=== PATIENT | male | born 1955 | race Two or more races ===

== ENCOUNTER 2018-07-08 01:31 | Observation (INO) | payer SELFPAY ==
[2018-07-08] MEDS ORDERED: NORMAL SALINE 1000 ML 1,000 ML IV ONE (01:52)
--- NOTE | 2018-07-08 01:53 | ER Document Report ---
ED General - General Stated Complaint: WEAKNESS Time Seen by Provider: 07/08/18 01:38 TRAVEL OUTSIDE OF THE [place] IN LAST 30 DAYS: No - HPI Notes: Patient is a 63-year-old male that presents to the emergency department for chief complaint of syncope. Patient appears intoxicated and does endorse alcohol consumption tonight. He do es not remember most of the events of the evening and is a poor historian. He did arrive by EMS with a complaint of syncopal event. Patient states he remembers feeling chest pain and nausea. He states he went to lay down and that does not remember any of the events. Patient was reportedly unconscious when EMS arrived but did awake to ammonia stimuli. Patient's did bystander CPR while he was unresponsive but had not checked a pulse. Patient currently is complaining of a pain in his chest that radiates up to the left side of his neck and generalized fatigue. He states he has been having this type of chest pain on and off for the last 6 weeks. Last time he felt it was about a week ago and then again today prior to syncope. He states he has not seen a doctor in many years and does not take any medications daily. Past Medical History: Negative Past Surgical History: Negative Social History: Occasional tobacco, social alcohol, denies drug use Family History: Reviewed and noncontributory for presenting illness Allergies: Reviewed, see documented allergy list. REVIEW OF SYSTEMS: CONSTITUTIONAL : No fever No chills No diaphoresis No recent illness Fatigue EENT: No vision changes No congestion No sore throat CARDIOVASCULAR: chest pain Syncope No palpitations RESPIRATORY: No shortness of breath No cough No difficulty breathing GASTROINTESTINAL: No abdominal pain No nausea No vomiting No diarrhea GENITOURINARY: No dysuria No hematuria No difficulty urinating MUSCULOSKELETAL: No back pain No leg pain No arm pain SKIN: No rashes No lesions LYMPHATIC: No swollen, enlarged glands. NEUROLOGICAL: No lightheadedness No headache No weakness No paresthesias PSYCHIATRIC: No anxiety No depression PHYSICAL EXAMINATION: Vital signs reviewed, nursing noted reviewed. GENERAL: Appears intoxicated, mildly somnolent, well-nourished HEAD: Atraumatic, normocephalic. EYES: Eyes appear normal, extraocular movements intact, sclera anicteric, conjunctiva are normal. ENT: nares patent, oropharynx clear without exudates. Moist mucous membranes. NECK: No carotid bruit bilaterally, normal range of motion, supple without lymphadenopathy LUNGS: Mild tenderness to sternum with overlying erythema, no crepitus or chest wall deformity, breath sounds clear to auscultation bilaterally and equal. No wheezes rales or rhonchi. HEART: Regular rate and rhythm without murmurs. +2/4 left radial and bilateral DP pulses. +1/4 right radial pulse. Normal capillary refill bilaterally ABDOMEN: No pulsatile midline mass or abdominal bruit, protuberant, soft, nontender, normoactive bowel sounds. No rebound, guarding, or rigidity. No masses appreciated. EXTREMITIES: Nontender, good range of motion, no pitting or edema. NEUROLOGICAL: No focal neurological deficits. Moves all extremities spontaneously Motor and sensory grossly intact on exam. PSYCH: Normal mood, normal affect. SKIN: Warm, diaphoretic, normal turgor, no rashes or lesions noted on exposed skin - Related Data Allergies/Adverse Reactions: No Known Allergies Allergy (Verified 07/08/18 01:49) Past Medical History - Social History Smoking Status: Current Some Day Smoker Family History: Reviewed & Not Pertinent - Immunizations Hx Diphtheria, Pertussis, Tetanus Vaccination: Yes Physical Exam - Vital signs Vitals: Temp 97.6 F 07/08/18 01:35 Course - Re-evaluation Re-evalutation: 07/08/18 01:52 Vitals reviewed. Nursing notes reviewed. EKG shows no STEMI. Patient placed on telemetry monitoring. Aspirin currently being held until CTA can be obtained to rule out aortic dissection given asymmetric radial pulses and complaint of syncope and chest pain. 07/08/18 01:58 Patient's family is now at bedside. They state he is a heavy drinker and has been drinking daily for a long time. They state that he was laying down during the syncopal episode and did not fall or injure himself. Patient at one point had blue lips and did not appear to be breathing which is why CPR was initiated. Laboratory 07/08/18 07/08/18 07/08/18 01:45 01:45 01:45 WBC 9.4 RBC 4.84 Hgb 14.8 Hct 42.9 MCV 89 MCH 30.5 MCHC 34.4 RDW 13.1 Plt Count 239 Seg Neutrophils % 55.4 Lymphocytes % 27.5 Monocytes % 6.1 Eosinophils % 9.7 H Basophils % 1.3 Absolute Neutrophils 5.2 Absolute Lymphocytes 2.6 Absolute Monocytes 0.6 Absolute Eosinophils 0.9 H Absolute Basophils 0.1 Sodium 141.6 Potassium 3.7 Chloride 109 H Carbon Dioxide 19 L Anion Gap 14 BUN 13 Creatinine 0.79 Est GFR ( Amer) > 60 Est GFR (Non-Af Amer) > 60 Glucose 113 H Calcium 9.1 Total Bilirubin 0.4 Direct Bilirubin 0.3 Neonat Total Bilirubin Not Reportable Neonat Direct Bilirubin Not Reportable Neonat Indirect Bili Not Reportable AST 28 ALT 26 Alkaline Phosphatase 69 Troponin I < 0.012 Total Protein 7.9 Albumin 4.3 Urine Color Urine Appearance Urine pH Ur Specific [place] Urine Protein Urine Glucose (UA) Urine Ketones Urine Blood Urine Nitrite Urine Bilirubin Urine Urobilinogen Ur Leukocyte Esterase Urine WBC (Auto) Urine Mucus (Auto) Urine Ascorbic Acid Urine Opiates Screen Urine Methadone Screen Ur Barbiturates Screen Ur Phencyclidine Scrn Ur Amphetamines Screen U Benzodiazepines Scrn Urine Cocaine Screen U Marijuana (THC) Screen Serum Alcohol 133 07/08/18 07/08/18 02:44 02:44 WBC RBC Hgb Hct MCV MCH MCHC RDW Plt Count Seg Neutrophils % Lymphocytes % Monocytes % Eosinophils % Basophils % Absolute Neutrophils Absolute Lymphocytes Absolute Monocytes Absolute Eosinophils Absolute Basophils Sodium Potassium Chloride Carbon Dioxide Anion Gap BUN Creatinine Est GFR ( Amer) Est GFR (Non-Af Amer) Glucose Calcium Total Bilirubin Direct Bilirubin Neonat Total Bilirubin Neonat Direct Bilirubin Neonat Indirect Bili AST ALT Alkaline Phosphatase Troponin I Total Protein Albumin Urine Color COLORLESS Urine Appearance CLEAR Urine pH 6.0 Ur Specific [place] 1.010 Urine Protein NEGATIVE Urine Glucose (UA) NEGATIVE Urine Ketones NEGATIVE Urine Blood NEGATIVE Urine Nitrite NEGATIVE Urine Bilirubin NEGATIVE Urine Urobilinogen NEGATIVE Ur Leukocyte Esterase NEGATIVE Urine WBC (Auto) 1 Urine Mucus (Auto) RARE Urine Ascorbic Acid NEGATIVE Urine Opiates Screen NEGATIVE Urine Methadone Screen NEGATIVE Ur Barbiturates Screen NEGATIVE Ur Phencyclidine Scrn NEGATIVE Ur Amphetamines Screen NEGATIVE U Benzodiazepines Scrn NEGATIVE Urine Cocaine Screen NEGATIVE U Marijuana (THC) Screen NEGATIVE Serum Alcohol Chest X-Ray 07/08/18 00:00 IMPRESSION: Clear lungs. Abdomen/Pelvis CTA 07/08/18 01:47 IMPRESSION: No aortic dissection or aneurysm. No pulmonary embolus. No acute inflammatory process. Chest/Abdomen CTA 07/08/18 01:47 IMPRESSION: No aortic dissection or aneurysm. No pulmonary embolus. No acute inflammatory process. 07/08/18 03:22 Patient's workup is unremarkable with the exception of acute alcohol intoxication. He has a normal troponin and no ischemia on EKG. CT scan shows no aortic dissection, aneurysm, or pulmonary embolism. Patient has normal BUN and creatinine. He has not had any events on telemetry. Patient will be admitted to the hospital for continued telemetry monitoring given his full synco pal event bystander CPR. Patient's care was discussed with Dr. Coulter who accepts admission. - Vital Signs Vital signs: Temp Pulse Resp BP Pulse Ox 97.6 F 10 L 143/91 H 99 07/08/18 01:35 07/08/18 02:00 07/08/18 01:40 07/08/18 02:00 - Laboratory Result Diagrams: 07/08/18 01:45 07/08/18 01:45 Laboratory results interpreted by me: 07/08/18 07/08/18 01:45 01:45 Eosinophils % 9.7 H Absolute Eosinophils 0.9 H Chloride 109 H Carbon Dioxide 19 L Glucose 113 H - EKG Interpretation by Me Additional EKG results interpreted by me: 07/08/18 01:53 Interpreted by myself [id number]: Normal sinus rhythm, rate 70, left axis, no ectopy, no ST elevation Discharge - Discharge Clinical Impression: Syncope Qualifiers: Syncope type: unspecified Qualified Code(s): R55 - Syncope and collapse Alcohol intoxication Qualifiers: Complication of substance-induced condition: with unspecified complication Qualified Code(s): F10.929 - Alcohol use, unspecified with intoxication, unspecified Condition: Stable Disposition: ADMITTED OBSERVATION Admitting Provider: [facility] (Hospitalist) Unit Admitted: Telemetry
[2018-07-08 02:00] LABS: ABSOLUTE BASOPHILS # (AUTO) 0.1 10^3/uL (0.0-0.2); ABSOLUTE EOSINOPHILS # (AUTO) 0.9 10^3/uL (0.0-0.6); ABSOLUTE LYMPHOCYTES (AUTO) 2.6 10^3/uL (0.5-4.7); ABSOLUTE MONOCYTES (AUTO) 0.6 10^3/uL (0.1-1.4); ABSOLUTE NEUT (AUTO) 5.2 10^3/uL (1.7-8.2); BASOPHILS % (AUTO) 1.3 % (0-2); EOSINOPHILS % (AUTO) 9.7 % (0-6); HEMATOCRIT 42.9 % (37.9-51.0); HEMOGLOBIN 14.8 g/dL (13.5-17.0); LYMPHOCYTES % (AUTO) 27.5 % (13-45); MEAN CORPUSCULAR HEMOGLOBIN 30.5 pg (27.0-33.4); MEAN CORPUSCULAR HGB CONC 34.4 g/dL (32.0-36.0); MEAN CORPUSCULAR VOLUME 89 fl (80-97); MONOCYTES % (AUTO) 6.1 % (3-13); PLATELET COUNT 239 10^3/uL (150-450); RED BLOOD COUNT 4.84 10^6/uL (4.35-5.55); RED CELL DISTRIBUTION WIDTH 13.1 % (11.5-14.0); SEGMENTED NEUTROPHILS % (AUTO) 55.4 % (42-78); TOTAL CELLS COUNTED % (AUTO) 100 %; WHITE BLOOD COUNT 9.4 10^3/uL (4.0-10.5)
[2018-07-08 02:23] LABS: ALANINE AMINOTRANSFERASE 26 U/L (21-72); ALBUMIN 4.3 g/dL (3.5-5.0); ALCOHOL 133 mg/dL (NONE DETECTED); ALKALINE PHOSPHATASE 69 U/L (38-126); ANION GAP 14 (5-19); ASPARTATE AMINO TRANSFERASE 28 U/L (17-59); BILIRUBIN,DIRECT 0.3 mg/dL (0.0-0.4); BILIRUBIN,TOTAL 0.4 mg/dL (0.2-1.3); BLOOD UREA NITROGEN 13 mg/dL (7-20); CALCIUM 9.1 mg/dL (8.4-10.2); CARBON DIOXIDE 19 mmol/L (22-30); CHLORIDE 109 mmol/L (98-107); GLUCOSE 113 mg/dL (75-110); POTASSIUM 3.7 mmol/L (3.6-5.0); SODIUM 141.6 mmol/L (137-145); TOTAL PROTEIN 7.9 g/dL (6.3-8.2)
[2018-07-08 02:55] LABS: APPEARANCE,URINE CLEAR; BILIRUBIN,URINE NEGATIVE (NEGATIVE); COLOR,URINE COLORLESS; GLUCOSE, URINE NEGATIVE (NEGATIVE); KETONES,URINE NEGATIVE (NEGATIVE); LEUKOCYTE ESTERASE,URINE NEGATIVE (NEGATIVE); NITRITE,URINE NEGATIVE (NEGATIVE); PROTEIN,URINE NEGATIVE (NEGATIVE); UROBILINOGEN,URINE NEGATIVE mg/dL (<2.0)
--- NOTE | 2018-07-08 02:58 | RADIOLOGY REPORT (SQ) ---
CLINICAL HISTORY: dissection COMPARISON: None. TECHNIQUE: CT ABDOMEN PELVIS WITHOUT THEN WITH IV CONTRAST, CT CHEST ANGIOGRAPHY WITHOUT THEN WITH IV CONTRAST on 07/08/2018 1:47 AM CDT. MIPS reconstructions were generated. This exam was performed according to our departmental dose-optimization program, which includes automated exposure control, adjustment of the mA and/or kV according to patient size and/or use of iterative reconstruction technique. FINDINGS: Vascular: Thoracic aorta is normal in course and caliber without aneurysm or dissection. Pulmonary arteries are adequately opacified without acute or chronic filling defects. Abdominal aorta is normal in course and caliber without aneurysm. Pelvic arteries are patent without aneurysm or occlusion. The heart is normal in size. There is no pericardial effusion. Intrathoracic lymph nodes are not enlarged. There is no hydronephrosis. Central airways are patent. Lungs are clear with no consolidation, mass or interstitial lung disease. Abdomen: The liver is normal in appearance. There is no biliary dilatation. Gallbladder is normal in appearance. The pancreas and spleen are normal in appearance. Adrenal glands are normal. There is a small simple cyst in the mid to lower pole of the right kidney measuring 3.1 cm. Left kidney is unremarkable. Abdominal aorta is normal in course and caliber without aneurysm. There is no free air. There is no retroperitoneal adenopathy. Pelvis: There is mild diffuse colonic diverticulosis. Urinary bladder is unremarkable. There is no free fluid. Appendix is normal. Skeleton: There are no acute osseous findings. No suspicious bony lesions. IMPRESSION: No aortic dissection or aneurysm. No pulmonary embolus. No acute inflammatory process.
--- NOTE | 2018-07-08 03:02 | RADIOLOGY REPORT (SQ) ---
CLINICAL HISTORY: SYNCOPE COMPARISON: None. TECHNIQUE: XR CHEST 1 VIEW 07/08/2018 12:00 AM CDT FINDINGS: Cardiac silhouette is normal in size. Lungs are clear without consolidation, atelectasis, mass or edema. There is no pleural effusion. There is no pneumothorax. There are no acute osseous findings. IMPRESSION: Clear lungs.
[2018-07-08 03:12] LABS: URINE AMPHETAMINES SCREEN NEGATIVE; URINE BARBITURATES SCREEN NEGATIVE; URINE BENZODIAZEPINES SCREEN NEGATIVE; URINE COCAINE SCREEN NEGATIVE; URINE MARIJUANA (THC) SCREEN NEGATIVE; URINE METHADONE SCREEN NEGATIVE; URINE PHENCYCLIDINE SCREEN NEGATIVE
[2018-07-08] MEDS ORDERED: ACETAMINOPHEN 325 MG TABLET PO PRN (04:09)
[2018-07-08] MEDS ORDERED: ONDANSETRON 4 MG TAB.RAPDIS PO PRN (04:09)
[2018-07-08] MEDS ORDERED: ONDANSETRON HCL INJ/PF 4 MG/2 ML SDV IV PRN (04:09)
[2018-07-08] MEDS ORDERED: MAG HYDROX/AL HYDROX/SIMETH SUSP 30 ML UDCUP PO PRN (04:09)
[2018-07-08] MEDS ORDERED: MAGNESIUM HYDROXIDE SUSP 30 ML UDCUP PO PRN (04:09)
[2018-07-08] MEDS: NORMAL SALINE 1000 ML 1,000 ML IV PRN (04:20)
--- NOTE | 2018-07-08 05:31 | PDOC H&P ---
History of Present Illness Admission Date/PCP: 07/08/18 03:33 No primary care physician Patient complains of: Was unresponsive status post brief respiratory arrest History of Present Illness: WILTON HUNG is a 63 year old male with history of alcohol and tobacco abuse who presented to the emergency room with acute onset of altered mental status with unresponsiveness and shallow breathing apparently followed by respiratory arrest and cyanosis for which EMS was called. Brief CPR was started and then the patient was given ammonia test that woke him up. Prior to that he has been drinking alcohol. He stated for beer and 2 liquid shots tonight. He has been having intermittent left parasternal chest pain that feels as pressure in sharp pain with diaphoresis and dyspnea as well as palpitations moderate in intensity and with radiation to his left neck as well as his left upper extremity. He denied any nausea or vomiting with it. He has been having cough productive of whitish sputum without wheezing. No dysuria, oliguria or hematuria or flank pain. No other bleeding diathesis. When he came to the emergency room his blood pressure was 143/91 with a pulse of 72 respiratory rate of 16 temperature 97.6 and pulse oximetry is 98% on room air. Labs were unremarkable except for CO2 of 19 and serum alcohol of 133 with negative urine drug screen. The patient had an abdominal and chest CTA which showed no evidence for PE or aortic dissection. The patient was given 1 L bolus of IV normal saline. He will be admitted to a telemetry bed for further evaluation and management. Past Medical History Past Medical History: #1 alcohol abuse 2. Tobacco abuse Past Surgical History Past Surgical History: Reports: None Social History Smoking Status: Current Some Day Smoker - Smokes 3-4 cigarettes/day Frequency of Alcohol Use: Heavy - Patient stated that he drinks 2 beer per day but today for beer and liquor shots Hx Recreational Drug Use: No Family History Family History: DM, Hypertension Parental Family History Reviewed: Yes Children Family History Reviewed: Yes Sibling(s) Family History Reviewed.: Yes Medication/Allergy Home Medications: Ciprofloxacin HCl [Cipro 500 mg Tablet] 500 mg PO BID #20 tablet 02/24/14 Metronidazole [Flagyl 500 mg Tablet] 500 mg PO TID #30 tablet 02/24/14 Oxycodone HCl/Acetaminophen [Percocet 5-325 mg Tablet] 1 - 2 tab PO ASDIR PRN #15 tablet 02/24/14 Allergies/Adverse Reactions: No Known Allergies Allergy (Verified 07/08/18 01:49) Review of Systems Review of Systems: As per history of present illness. All pertinent systems were reviewed above. Constitutional, HEENT, cardiovascular, respiratory, GI, , musculoskeletal, neuro, psychiatric, endocrine, integumentary and hematologic systems were reviewed and are otherwise negative/unremarkable except for positive findings mentioned above in the HPI. Physical Exam Vital Signs: Temp Pulse Resp BP Pulse Ox 97.6 F 11 L 136/95 H 97 07/08/18 01:35 07/08/18 04:00 07/08/18 04:00 07/08/18 04:00 Intake & Output 07/06/18 07/07/18 07/08/18 06:59 06:59 06:59 Intake Total 1000 Balance 1000 Weight 81.647 kg Exam: Generally: Pleasant middle-aged male in no acute distress Vital signs-as listed Head - atraumatic, normocephalic. Pupils - equal, round and reactive to light and accommodation. Extraocular movements are intact. No scleral icterus. Oropharynx - moist mucous membranes and tongue. No pharyngeal erythema or exudate. Neck - supple. No JVD. Carotid pulses 2+ bilaterally. No carotid bruits. No palpable thyromegaly or lymphadenopathy. Cardiovascular - regular rate and rhythm. Normal S1 and S2. No murmurs, gallops or rubs. Lungs - clear to auscultation bilaterally. Abdomen - soft and nontender. Positive bowel sounds. No palpable organomegaly or masses. Extremities - no pitting edema, clubbing or cyanosis. Neuro - grossly non-focal. He is alert oriented x3 and cooperative. Skin - no rashes. and rectal exam - deferred. Results Laboratory Results: 07/08/18 01:45 07/08/18 01:45 07/08/18 07/08/18 07/08/18 01:45 01:45 02:44 WBC 9.4 RBC 4.84 Hgb 14.8 Hct 42.9 MCV 89 MCH 30.5 MCHC 34.4 RDW 13.1 Plt Count 239 Seg Neutrophils % 55.4 Lymphocytes % 27.5 Monocytes % 6.1 Eosinophils % 9.7 H Basophils % 1.3 Absolute Neutrophils 5.2 Absolute Lymphocytes 2.6 Absolute Monocytes 0.6 Absolute Eosinophils 0.9 H Absolute Basophils 0.1 Sodium 141.6 Potassium 3.7 Chloride 109 H Carbon Dioxide 19 L Anion Gap 14 BUN 13 Creatinine 0.79 Est GFR ( Amer) > 60 Est GFR (Non-Af Amer) > 60 Glucose 113 H Calcium 9.1 Total Bilirubin 0.4 AST 28 ALT 26 Alkaline Phosphatase 69 Total Protein 7.9 Albumin 4.3 Urine Color COLORLESS Urine Appearance CLEAR Urine pH 6.0 Ur Specific [place] 1.010 Urine Protein NEGATIVE Urine Glucose (UA) NEGATIVE Urine Ketones NEGATIVE Urine Blood NEGATIVE Urine Nitrite NEGATIVE Ur Leukocyte Esterase NEGATIVE Urine WBC (Auto) 1 07/08/18 01:45 Troponin I < 0.012 Impressions: Chest X-Ray 07/08/18 00:00 IMPRESSION: Clear lungs. Abdomen/Pelvis CTA 07/08/18 01:47 IMPRESSION: No aortic dissection or aneurysm. No pulmonary embolus. No acute inflammatory process. Chest/Abdomen CTA 07/08/18 01:47 IMPRESSION: No aortic dissection or aneurysm. No pulmonary embolus. No acute inflammatory process. Assessment and Plan - Diagnosis (1) Respiratory arrest Is this a current diagnosis for this admission?: Yes Plan: The patient was rapid resuscitated after ammonia test in brief CPR. He will be admitted to a telemetry bed. We will continue monitoring him. Management as below. (2) Syncope Qualifiers: Syncope type: unspecified Qualified Code(s): R55 - Syncope and collapse Is this a current diagnosis for this admission?: Yes Plan: This likely related to alcohol intoxication. He has suspected history of sleep apnea and it could have been contributing to his unresponsiveness. We will monitor his orthostatics and monitor him for arrhythmia on telemetry. He had no reported hypoglycemia. Will follow serial Enzymes. We will obtain a 2D echo this a.m. (3) Chest pain Is this a current diagnosis for this admission?: Yes Plan: Chest pain, rule out acute coronary syndrome. The patient will be admitted to a telemetry bed. Will follow serial cardiac enzymes and EKGs. We will obtain a cardiology consult in a.m. for further cardiac risk stratification. The patient will be placed on aspirin as well as p.r.n. sublingual nitroglycerin and morphine sulfate for pain. (4) Alcohol intoxication Qualifiers: Complication of substance-induced condition: with unspecified complication Qualified Code(s): F10.929 - Alcohol use, unspecified with intoxication, unspecified Is this a current diagnosis for this admission?: Yes Plan: The patient will be on banana bag daily and as needed IV Ativan for withdrawal. (5) Tobacco abuse Is this a current diagnosis for this admission?: Yes Plan: I counseled the patient for smoking cessation and the patient will receive further counseling here. (6) DVT prophylaxis Is this a current diagnosis for this admission?: Yes Plan: Subcutaneous Lovenox and GI prophylaxis with PPI therapy for the possibility of GI etiology for his chest pain and given his alcohol abuse and the possibility of alcoholic gastritis - Time Within: within 72 hours - Inpatient Certification Medical Necessity: Need Close Monitoring Due to Risk of Patient Decompensation, Need For Continuous Telemetry Monitoring, Need for Neurological Checks, Risk of Complication if Not Cared For in Hospital - Plan Summary Plan Summary: The plan of care was discussed in details with the patient. I answered all questions. The patient agreed to proceed with the above-mentioned plan. The patient is presumably full code. This note was created by [employer] dictating software and may contain typo errors that may have not been proofread.
[2018-07-08] MEDS ORDERED: LORAZEPAM INJ 2 MG/1 ML VIAL IV PRN (06:12)
[2018-07-08] MEDS: PANTOPRAZOLE SODIUM 40 MG TABLET.DR PO SCH (06:23)
[2018-07-08 06:57] LABS: CHOLESTEROL 239.56 mg/dL (0-200); TRIGLYCERIDES 296 mg/dL (<150)
[2018-07-08 07:08] LABS: DIRECT LDL 144 mg/dL (<100)
[2018-07-08 07:13] LABS: VLDL CHOLESTEROL 59.2 mg/dL (10-31)
[2018-07-08 08:52] LABS: CREATINE KINASE MB 1.61 ng/mL (<4.55)
[2018-07-08 08:56] LABS: TROPONIN I < 0.012 ng/mL
[2018-07-08] MEDS: ENOXAPARIN SODIUM INJ 40 MG/0.4 ML DISP.SYRIN SUBCUT SCH (11:17)
[2018-07-08 15:29] LABS: CREATINE KINASE MB 1.44 ng/mL (<4.55)
[2018-07-08 15:33] LABS: TROPONIN I < 0.012 ng/mL
--- NOTE | 2018-07-08 17:51 | Progress Note ---
Provider Note Provider Note: This is 63 years old origin patient with history of alcohol and tobacco abuse presented to the ER with acute onset of altered mental status with unresponsiveness. Reportedly patient had brief CPR and then the patient was given ammonia tests that woke him up. He is lipid panel shows triglycerides of 296, total cholesterol of 236 and LDL of 144. Currently his vital signs are within normal limits. Accepted this patient.
[2018-07-08] MEDS ORDERED: NORMAL SALINE 1000 ML 1,000 ML with POTASSIUM CHLORIDE 20 MEQ, MAGNESIUM SULFATE 8 MEQ,... IV SCH ×5 (18:00)
--- NOTE | 2018-07-08 19:50 | XCELERA REPORT ---
[address] [address] Transthoracic Echocardiogram Report Name: WILTON HUNG Age: 63 yrs Gender: Male : 1955 Patient Status: Inpatient Patient Location: [place] [address]^[id number] Study Date: 07/08/2018 09:48 AM Height: 68 in Weight: 180 lb BSA: 2.0 m2 Procedure: A two-dimensional transthoracic echocardiogram with color flow Doppler was performed. Study Quality: Fair. Reason For Study: Syncope, chest pain status post respiratory arrest History: Syncope, chest pain status post respiratory arrest. Ordering Physician: NORA LORENZO Performed By: Ly Gerard Interpretation Summary The left ventricle is normal in size. There is normal left ventricular wall thickness. Left ventricular systolic function is normal. LV EF is > than 65% LV diastolic function could not be adequately assessed. The left ventricular wall motion is normal. There is no thrombus. There is no ASD ,VSD ,or PFO seen. The right ventricle is normal in size and function. The right atrium is normal. The left atrial size is normal. There is no evidence of mitral valve prolapse. There is no vegetation seen on the mitral valve. There is no mitral valve stenosis. There is a trace amount of mitral regurgitation There is no aortic valvular vegetation. There is no aortic valve stenosis There is no LVOT obstruction. No aortic regurgitation is present. There is no tricuspid stenosis. There is a mild amount of tricuspid regurgitation There is mild pulmonary hypertension by echo RVSP is 31 to 36 mm of Hg , with RA mean of 5 to 10. There is no pulmonic valvular stenosis. There is a trace amount of pulmonic regurgitation The aortic root is normal size. The inferior vena cava appeared normal and decreased > 50% with respiration (RAP 5-10 mmHg) There is no pericardial effusion. MMode/2D Measurements & Calculations RVDd: 4.5 cm LVIDd: 3.9 cm FS: 36.6 % Ao root diam: 3.1 cm IVSd: 0.93 cm LVIDs: 2.5 cm EDV(Teich): 66.8 ml Ao root area: 7.5 cm2 LVPWd: 0.86 cm ESV(Teich): 22.0 ml LA dimension: 3.5 cm EF(Teich): 67.0 % Doppler Measurements & Calculations MV E max rex: MV P1/2t max rex: Ao V2 max: LV V1 max P.7 cm/sec 97.2 cm/sec 148.2 cm/sec 9.2 mmHg MV A max rex: MV P1/2t: 60.7 msec Ao max P.8 mmHg LV V1 max: 96.3 cm/sec MVA(P1/2t): 3.6 cm2 151.5 cm/sec MV E/A: 1.0 MV dec slope: 468.9 cm/sec2 MV dec time: 0.20 sec PA V2 max: TR max rex: MV P1/2t-pr_phl: 92.3 cm/sec 252.9 cm/sec 60.7 msec PA max PG: TR max P.6 mmHg 3.4 mmHg Left Ventricle The left ventricle is normal in size. There is normal left ventricular wall thickness. Left ventricular systolic function is normal. LV EF is > than 65%. LV diastolic function could not be adequately assessed. The left ventricular wall motion is normal. There is no thrombus. There is no ASD ,VSD ,or PFO seen. Right Ventricle The right ventricle is normal in size and function. Atria The right atrium is normal. The left atrial size is normal. Mitral Valve There is no evidence of mitral valve prolapse. There is no vegetation seen on the mitral valve. There is no mitral valve stenosis. There is a trace amount of mitral regurgitation. Aortic Valve There is no aortic valvular vegetation. There is no aortic valve stenosis. There is no LVOT obstruction. No aortic regurgitation is present. Tricuspid Valve There is no tricuspid stenosis. There is a mild amount of tricuspid regurgitation. There is mild pulmonary hypertension by echo. RVSP is 31 to 36 mm of Hg , with RA mean of 5 to 10. Pulmonic Valve There is no pulmonic valvular stenosis. There is a trace amount of pulmonic regurgitation. Great Vessels The aortic root is normal size. The inferior vena cava appeared normal and decreased > 50% with respiration (RAP 5-10 mmHg). Effusions There is no pericardial effusion. : NORA LORENZO > [place]
[2018-07-08 21:02] LABS: CREATINE KINASE MB 1.16 ng/mL (<4.55)
[2018-07-08 21:07] LABS: TROPONIN I < 0.012 ng/mL
--- NOTE | 2018-07-09 | EKG REPORT ---
SEVERITY:- OTHERWISE NORMAL ECG - SINUS RHYTHM LEFT AXIS DEVIATION : Confirmed by: Janna Ko 09-Jul-2018 00:00:12
[2018-07-09] MEDS: PANTOPRAZOLE SODIUM 40 MG TABLET.DR PO SCH (06:24)
[2018-07-09] MEDS: NORMAL SALINE 1000 ML 1,000 ML IV PRN (06:24)
[2018-07-09 06:29] LABS: ABSOLUTE BASOPHILS # (AUTO) 0.1 10^3/uL (0.0-0.2); ABSOLUTE LYMPHOCYTES (AUTO) 2.8 10^3/uL (0.5-4.7); ABSOLUTE MONOCYTES (AUTO) 0.5 10^3/uL (0.1-1.4); ABSOLUTE NEUT (AUTO) 3.3 10^3/uL (1.7-8.2); EOSINOPHILS % (AUTO) 12.5 % (0-6); HEMATOCRIT 40.3 % (37.9-51.0); HEMOGLOBIN 13.8 g/dL (13.5-17.0); LYMPHOCYTES % (AUTO) 36.9 % (13-45); MEAN CORPUSCULAR HEMOGLOBIN 30.7 pg (27.0-33.4); MEAN CORPUSCULAR HGB CONC 34.3 g/dL (32.0-36.0); MEAN CORPUSCULAR VOLUME 90 fl (80-97); MONOCYTES % (AUTO) 6.4 % (3-13); PLATELET COUNT 208 10^3/uL (150-450); RED CELL DISTRIBUTION WIDTH 13.3 % (11.5-14.0); SEGMENTED NEUTROPHILS % (AUTO) 43.2 % (42-78); TOTAL CELLS COUNTED % (AUTO) 100 %; WHITE BLOOD COUNT 7.7 10^3/uL (4.0-10.5)
[2018-07-09 06:52] LABS: ANION GAP 8 (5-19); BLOOD UREA NITROGEN 16 mg/dL (7-20); CALCIUM 8.5 mg/dL (8.4-10.2); CARBON DIOXIDE 23 mmol/L (22-30); CHLORIDE 110 mmol/L (98-107); GLUCOSE 93 mg/dL (75-110); POTASSIUM 4.2 mmol/L (3.6-5.0); SODIUM 140.7 mmol/L (137-145)
[2018-07-09 08:41] VITALS: BP 156/96
[2018-07-09] MEDS: ENOXAPARIN SODIUM INJ 40 MG/0.4 ML DISP.SYRIN SUBCUT SCH (09:45)
--- NOTE | 2018-07-09 14:16 | PDOC DISCHARGE SUMMARY ---
General - Admit/Disc Date/PCP Admission Date/Primary Care Provider: 07/08/18 05:48 Discharge Date: 07/09/18 - Discharge Diagnosis (1) Syncope Is this a current diagnosis for this admission?: Yes Summary: He was with some family at home and had a few alcoholic beverages when suddenly he passed out. He was revived fairly quickly. His workup thus far has been negative. He will complete the workup with an outpatient Holter monitor. (2) Alcohol intoxication Is this a current diagnosis for this admission?: Yes Summary: As noted above (3) Respiratory arrest Is this a current diagnosis for this admission?: Yes Summary: Secondary to his syncopal episode, resolved quickly. He did say that he snores pretty bad and it was recommended that he have an outpatient sleep study. - Additional Information Discharge Diet: Cardiac Discharge Activity: Activity As Tolerated Home Medications: No Home Medications 07/08/18 History of Present Illness History of Present Illness: WILTON HUNG is a 63 year old male with history of alcohol and tobacco abuse who presented to the emergency room with acute onset of altered mental status with unresponsiveness and shallow breathing apparently followed by respiratory arrest and cyanosis for which EMS was called. Brief CPR was started and then the patient was given ammonia test that woke him up. Prior to that he has been drinking alcohol. He stated for beer and 2 liquid shots tonight. He has been having intermittent left parasternal chest pain that feels as pressure in sharp pain with diaphoresis and dyspnea as well as palpitations moderate in intensity and with radiation to his left neck as well as his left upper extremity. He denied any nausea or vomiting with it. He has been having cough productive of whitish sputum without wheezing. No dysuria, oliguria or hematuria or flank pain. No other bleeding diathesis. When he came to the emergency room his blood pressure was 143/91 with a pulse of 72 respiratory rate of 16 temperature 97.6 and pulse oximetry is 98% on room air. Labs were unremarkable except for CO2 of 19 and serum alcohol of 133 with negative urine drug screen. The patient had an abdominal and chest CTA which showed no evide nce for PE or aortic dissection. The patient was given 1 L bolus of IV normal saline. He will be admitted to a telemetry bed for further evaluation and management. Hospital Course Hospital Course: As noted above, he was awakened with smelling salts. He was complaining of some chest discomfort that resolved whenever he belched. His troponins have been negative. His echocardiogram was unremarkable. It was determined that he would most likely benefit from an outpatient Holter monitor study. Those arrangements are being made through Dr. Bay's office. He also says that he snores, and I recommended that he have an outpatient sleep study. His labs and examination were reassuring and he was discharged in good condition. Physical Exam Vital Signs: Temp Pulse Resp BP Pulse Ox 97.9 F 58 L 18 156/96 H 98 07/09/18 07:00 07/09/18 07:00 07/09/18 07:00 07/09/18 07:00 07/09/18 07:00 Intake & Output 07/08/18 07/09/18 07/10/18 06:59 06:59 06:59 Intake Total 1000 2598 Output Total 1000 Balance 1000 1598 Weight 81.647 kg 95.7 kg General appearance: PRESENT: no acute distress, cooperative, obese Respiratory exam: PRESENT: clear to auscultation jordi, symmetrical, wheezes. ABSENT: accessory muscle use, crackles, prolonged expiratory phas, rhonchi, unlabored Cardiovascular exam: PRESENT: RRR, +S1, +S2 Pulses: PRESENT: normal carotid pulses Vascular exam: PRESENT: normal capillary refill GI/Abdominal exam: PRESENT: normal bowel sounds, soft. ABSENT: distended, guarding, rebound, tenderness Extremities exam: ABSENT: clubbing, pedal edema Musculoskeletal exam: PRESENT: normal inspection. ABSENT: deformity Neurological exam: PRESENT: alert, awake, oriented to person, oriented to place, oriented to time, oriented to situation Psychiatric exam: PRESENT: appropriate affect, normal mood Skin exam: PRESENT: dry, warm Results Laboratory Results: 07/09/18 06:10 07/09/18 06:10 07/09/18 07/09/18 06:10 06:10 WBC 7.7 RBC 4.50 Hgb 13.8 Hct 40.3 MCV 90 MCH 30.7 MCHC 34.3 RDW 13.3 Plt Count 208 Seg Neutrophils % 43.2 Lymphocytes % 36.9 Monocytes % 6.4 Eosinophils % 12.5 H Basophils % 1.0 Absolute Neutrophils 3.3 Absolute Lymphocytes 2.8 Absolute Monocytes 0.5 Absolute Eosinophils 1.0 H Absolute Basophils 0.1 Sodium 140.7 Potassium 4.2 Chloride 110 H Carbon Dioxide 23 Anion Gap 8 BUN 16 Creatinine 0.79 Est GFR ( Amer) > 60 Est GFR (Non-Af Amer) > 60 Glucose 93 Calcium 8.5 Magnesium 2.3 07/08/18 07/08/18 07/08/18 01:45 08:14 08:14 Creatine Kinase 133 CK-MB (CK-2) 1.61 Troponin I < 0.012 < 0.012 07/08/18 07/08/18 07/08/18 14:40 14:40 20:20 Creatine Kinase 139 129 CK-MB (CK-2) 1.44 Troponin I < 0.012 07/08/18 20:20 Creatine Kinase CK-MB (CK-2) 1.16 Troponin I < 0.012 Impressions: Chest X-Ray 07/08/18 00:00 IMPRESSION: Clear lungs. Abdomen/Pelvis CTA 07/08/18 01:47 IMPRESSION: No aortic dissection or aneurysm. No pulmonary embolus. No acute inflammatory process. Chest/Abdomen CTA 07/08/18 01:47 IMPRESSION: No aortic dissection or aneurysm. No pulmonary embolus. No acute inflammatory process. Qualifiers - * PATIENT BEING DISCHARGED WITH ANY OF THE FOLLOWING DIAGNOSIS: No Plan Time Spent: Greater than 30 Minutes
== END 2018-07-09 15:13 | disposition home or self-care (01) ==
LOC: ER 01:31 → OBSVTOIN 03:33 → EH 03:33 → INTOOBSV 03:33 → UNDOADMOB 03:33 → OBSVTOIN 05:48 → INTOOBSV 05:48 → EH 05:48 → 4S 15:03
PROVIDERS: ADMIT Family Medicine; ATTEND Family Medicine
DX: R55 Syncope and collapse (principal); F10.129 Alcohol abuse with intoxication, unspecified; R09.2 Respiratory arrest; F17.210 Nicotine dependence, cigarettes, uncomplicated; R06.83 Snoring; R05 Cough; R07.89 Other chest pain; R61 Generalized hyperhidrosis; R14.2 Eructation; Y90.6 Blood alcohol level of 120-199 mg/100 ml; Z82.49 Family history of ischemic heart disease and other diseases of the circulatory system
CPT/HCPCS: 93005; 99285; 96360; 36415 ×2; 82553; 80307 ×2; 82550; 83735; 84443; 85025 ×2; 80048; 80053; 81001; 84484; 80061; 93306; 71045; 71275; 74174; 93010; G0378 ×4; J3475; J1650 ×2; J2060; J3480; J3411; J7030 ×2; J3490 ×3

== ENCOUNTER 2019-02-28 19:41 | Emergency (ER) | payer OTHER ==
[2019-02-28] MEDS ORDERED: PREDNISONE 20 MG TABLET PO ONE (20:38)
--- NOTE | 2019-02-28 20:41 | ER Document Report ---
ED Medical Screen (RME) - General Stated Complaint: TROUBLE BREATHING/COUGH Time Seen by Provider: 02/28/19 20:33 Mode of Arrival: Ambulatory Information source: Patient Notes: Patient is a 63-year-old male presenting with 2-week history of productive cough. Patient denies any fever or chills. He reports he is tried multiple jhiz-ozs-efdgaaf medications without relief. Patient states his cough was getting worse so he came in to be seen today. Exam: Lung sounds clear and equal bilaterally, no acute distress noted. I have greeted and performed a rapid initial assessment of this patient. A comprehensive ED assessment and evaluation of the patient, analysis of test results and completion of the medical decision making process will be conducted by additional ED providers. I have specifically instructed the patient or family members with the patient to immediately return to any nursing staff should anything change in the patient's condition or with their chief complaint. This medical record was dictated with voice recognizing software. There may be grammatical, syntax errors that are unintended. TRAVEL OUTSIDE OF THE [place] IN LAST 30 DAYS: No - Related Data Allergies/Adverse Reactions: No Known Allergies Allergy (Verified 07/08/18 01:49) Past Medical History Renal/ Medical History: Denies: Hx Peritoneal Dialysis - Immunizations Hx Diphtheria, Pertussis, Tetanus Vaccination: Yes Physical Exam - Vital signs Vitals: Temp Pulse Resp BP Pulse Ox 98.3 F 81 20 141/88 H 97 02/28/19 20:04 02/28/19 20:04 02/28/19 20:04 02/28/19 20:04 02/28/19 20:04 Course - Vital Signs Vital signs: Temp Pulse Resp BP Pulse Ox 98.3 F 81 20 141/88 H 97 02/28/19 20:04 02/28/19 20:04 02/28/19 20:04 02/28/19 20:04 02/28/19 20:04
[2019-02-28 21:08] LABS: ABSOLUTE BASOPHILS # (AUTO) 0.1 10^3/uL (0.0-0.2); ABSOLUTE EOSINOPHILS # (AUTO) 1.1 10^3/uL (0.0-0.6); ABSOLUTE LYMPHOCYTES (AUTO) 3.4 10^3/uL (0.5-4.7); ABSOLUTE MONOCYTES (AUTO) 0.7 10^3/uL (0.1-1.4); ABSOLUTE NEUT (AUTO) 4.1 10^3/uL (1.7-8.2); BASOPHILS % (AUTO) 1.4 % (0-2); EOSINOPHILS % (AUTO) 11.9 % (0-6); HEMATOCRIT 42.9 % (37.9-51.0); HEMOGLOBIN 14.8 g/dL (13.5-17.0); MEAN CORPUSCULAR HEMOGLOBIN 30.1 pg (27.0-33.4); MEAN CORPUSCULAR HGB CONC 34.5 g/dL (32.0-36.0); MEAN CORPUSCULAR VOLUME 87 fl (80-97); MONOCYTES % (AUTO) 7.7 % (3-13); PLATELET COUNT 263 10^3/uL (150-450); RED BLOOD COUNT 4.92 10^6/uL (4.35-5.55); TOTAL CELLS COUNTED % (AUTO) 100 %; WHITE BLOOD COUNT 9.5 10^3/uL (4.0-10.5)
--- NOTE | 2019-02-28 21:33 | RADIOLOGY REPORT (SQ) ---
EXAM DESCRIPTION: XR CHEST 2 VIEWS COMPLETED DATE/TME: 02/28/2019 20:38 CLINICAL HISTORY: 63 years, Male, cough x2 weeks COMPARISON: None. NUMBER OF VIEWS: Two TECHNIQUE: Two views of the chest LIMITATIONS: None. FINDINGS: Lungs are clear. The heart is normal in size. There is no pneumothorax or pleural effusion. Multilevel thoracic spondylosis is noted. IMPRESSION: No acute cardiopulmonary abnormality. copyright 2010 [employer]- All Rights Reserved
[2019-02-28 21:34] LABS: ALBUMIN 4.1 g/dL (3.5-5.0); ALKALINE PHOSPHATASE 70 U/L (38-126); ANION GAP 8 (5-19); ASPARTATE AMINO TRANSFERASE 24 U/L (17-59); BILIRUBIN,DIRECT 0.1 mg/dL (0.0-0.4); BILIRUBIN,TOTAL 0.4 mg/dL (0.2-1.3); BLOOD UREA NITROGEN 15 mg/dL (7-20); CALCIUM 9.1 mg/dL (8.4-10.2); CARBON DIOXIDE 28 mmol/L (22-30); CHLORIDE 106 mmol/L (98-107); GLUCOSE 93 mg/dL (75-110); TOTAL PROTEIN 7.8 g/dL (6.3-8.2)
[2019-02-28] MEDS ORDERED: IPRATROPIUM/ALBUTEROL 0.5-2.5 MG/3 ML AMPUL NEB ONE (22:27)
--- NOTE | 2019-02-28 23:01 | ER Document Report ---
ED Respiratory Problem - General Chief Complaint: Cold Symptoms Stated Complaint: TROUBLE BREATHING/COUGH Time Seen by Provider: 02/28/19 20:33 Mode of Arrival: Ambulatory Notes: Patient is a 63-year-old male who presents emergency department with a chief complaint of cough. Patient reports he has had a productive cough for 2 weeks. Patient reports he has had a congested-like cough with green sputum intermittently. Patient denies fever chills. Patient reports he was taking qzsx-uyd-[id number] cough medication that has had no relief. Patient reports he is having bilateral rib pain that is worse when he coughs and takes deep breaths. Patient denies nausea, vomiting or diarrhea. Patient denies recent travel or sick contacts. Patient states he does smoke about 1 pack of cigarettes per week. TRAVEL OUTSIDE OF THE [place] IN LAST 30 DAYS: No - Related Data Allergies/Adverse Reactions: No Known Allergies Allergy (Verified 07/08/18 01:49) Past Medical History - General Information source: Patient - Social History Smoking Status: Current Some Day Smoker Lives with: Family Family History: DM, Hypertension Patient has suicidal ideation: No Patient has homicidal ideation: No - Past Medical History Cardiac Medical History: Reports: None Pulmonary Medical History: Reports: None EENT Medical History: Reports: None Neurological Medical History: Reports: None Endocrine Medical History: Reports: None Renal/ Medical History: Reports: None. Denies: Hx Peritoneal Dialysis Malignancy Medical History: Reports None GI Medical History: Reports: None Musculoskeletal Medical History: Reports None Skin Medical History: Reports None Psychiatric Medical History: Reports: None Traumatic Medical History: Reports: None Infectious Medical History: Reports: None Surgical Hx: Negative - Immunizations Hx Diphtheria, Pertussis, Tetanus Vaccination: Yes Review of Systems - Review of Systems Constitutional: See HPI EENT: No symptoms reported Cardiovascular: No symptoms reported Respiratory: See HPI Gastrointestinal: No symptoms reported Genitourinary: No symptoms reported Male Genitourinary: No symptoms reported Musculoskeletal: No symptoms reported Skin: No symptoms reported Hematologic/Lymphatic: No symptoms reported Neurological/Psychological: No symptoms reported Physical Exam - Vital signs Vitals: Temp Pulse Resp BP Pulse Ox 98.3 F 81 20 141/88 H 97 02/28/19 20:04 02/28/19 20:04 02/28/19 20:04 02/28/19 20:04 02/28/19 20:04 Interpretation: Normal - Notes Notes: GENERAL: Well-appearing, well-nourished and in no acute distress. HEAD: Atraumatic, normocephalic. EYES: Pupils equal round and reactive to light, extraocular movements intact, sclera anicteric, conjunctiva are normal. ENT: Nares patent, oropharynx clear without exudates. Moist mucous membranes. NECK: Normal range of motion, supple without lymphadenopathy or JVD. LUNGS: Lungs are clear as listed in bilateral lower lobes. Patient does have scattered rhonchi in bilateral upper lobes. Patient does have a congested cough. There is no wheezing. There is no crackles. HEART: Regular rate and rhythm without murmurs, rubs or gallops. Chest wall tenderness with palpation ABDOMEN: Soft, nontender, normoactive bowel sounds. No guarding, no rebound. No masses appreciated. BACK: No cervical, thoracic, lumbar midline tenderness. No saddle anesthesia, normal distal neurovascular exam. GENITOURINARY: Deferred. EXTREMITIES: Normal range of motion, no pitting or edema. No clubbing or cyanosis. NEUROLOGICAL: Cranial nerves II through XII grossly intact. Normal speech, normal gait. PSYCH: Normal mood, normal affect. SKIN: Warm, Dry, normal turgor, no rashes or lesions noted. Course - Re-evaluation Re-evalutation: 02/28/19 23:01 Patient's laboratory findings and chest x-ray were negative. We will give a breathing treatment as the patient reports he still feels like he is congested in his chest. 02/28/19 23:40 Patient reports feeling much better after receiving a breathing treatment. We will give the patient albuterol inhaler to go home with, prednisone, Tessalon Perls. Patient instructed to take Tylenol and ibuprofen as needed for his rib and chest wall pain. - Vital Signs Vital signs: Temp Pulse Resp BP Pulse Ox 98.3 F 81 20 141/88 H 97 02/28/19 20:04 02/28/19 20:04 02/28/19 20:04 02/28/19 20:04 02/28/19 20:04 - Laboratory Result Diagrams: 02/28/19 20:55 02/28/19 20:55 Laboratory results interpreted by me: 02/28/19 20:55 Eos % (Auto) 11.9 H Absolute Eos (auto) 1.1 H 02/28/19 23:49 Patient does not have a leukocytosis, anemia, alteration electrolytes or kidney function. Patient's liver enzymes are normal. Laboratory 02/28/19 02/28/19 20:55 20:55 WBC 9.5 RBC 4.92 Hgb 14.8 Hct 42.9 MCV 87 MCH 30.1 MCHC 34.5 RDW 13.0 Plt Count 263 Lymph % (Auto) 36.0 [place] % (Auto) 7.7 Eos % (Auto) 11.9 H Baso % (Auto) 1.4 Absolute Neuts (auto) 4.1 Absolute Lymphs (auto) 3.4 Absolute Monos (auto) 0.7 Absolute Eos (auto) 1.1 H Absolute Basos (auto) 0.1 Seg Neutrophils % 43.0 Sodium 142.3 Potassium 4.0 Chloride 106 Carbon Dioxide 28 Anion Gap 8 BUN 15 Creatinine 0.92 Est GFR ( Amer) > 60 Est GFR (MDRD) Non-Af > 60 Glucose 93 Calcium 9.1 Total Bilirubin 0.4 Direct Bilirubin 0.1 Neonat Total Bilirubin Not Reportable Neonat Direct Bilirubin Not Reportable Neonat Indirect Bili Not Reportable AST 24 ALT 22 Alkaline Phosphatase 70 Total Protein 7.8 Albumin 4.1 - Diagnostic Test Radiology reviewed: Reports reviewed Radiology results interpreted by me: 02/28/19 23:02 Chest X-Ray 02/28/19 20:38 IMPRESSION: No acute cardiopulmonary abnormality. copyright 2010 [employer]- All Rights Reserved Discharge - Discharge Clinical Impression: Acute bronchitis Qualifiers: Bronchitis organism: unspecified organism Qualified Code(s): J20.9 - Acute bronchitis, unspecified Condition: Stable Disposition: HOME, SELF-CARE Additional Instructions: *Today you are seen in the emergency department for a productive cough. We did obtain basic lab work and a chest x-ray which was benign. Your chest x-ray did not show a pneumonia. Your symptoms are consistent with a bronchitis. We will place you on oral steroids called prednisone. You have received your first dose here in the emergency department and you will start your prescription tomorrow. BRONCHITIS: You have acute bronchitis. This disease is an infection or inflammation of the air passageways in your lungs. Symptoms usually include cough, low grade fever, shortness of breath, and wheezing. The cough usually persists for a couple of weeks. Most cases of bronchitis get better without antibiotics. We prescribe antibiotics when we believe bacteria are damaging your airways, or if there's high risk the bronchitis will worsen into pneumonia. Increase your fluid intake. A cool mist humidifier may make your lungs more comfortable. An expectorant (cough medicine that loosens phlegm) can help. If you smoke, STOP!!! Recovery from bronchitis can be somewhat slow, but you should see improvement within a day or two. Repeated episodes of bronchitis may result in lung damage -- for example, chronic bronchitis, recurrent pneumonias, or emphysema. Call the doctor if you develop increasing fever, shortness of breath, chest pain, bloody sputum, or otherwise worsen. If you have not improved at all after several days, contact the physician. BRONCHITIS WITH BRONCHOSPASM (WHEEZING): You have bronchitis with bronchospasm (wheezing). Sometimes people develop wheezing with a chest cold. This occurs either because of an underlying tendency toward asthma or because the virus itself irritates the bronchial tubes. This irritation causes cough, shortness of breath, and wheezing. Emergency treatment of bronchospasm may include adrenaline shots or bronchodilator aerosol. You may feel lightheaded and have a rapid pulse for an hour or two. Rest and get plenty of fluids. At home, we'll treat you with a bronchodilator inhaler. Corticosteroids may be required for some patients. Until you recover, avoid chemical fumes, dusts, pollens, and exercising in very cold or dry air. If you smoke, stop now! Most cases of bronchitis get better without antibiotics. We prescribe antibiotics when we believe bacteria are damaging your airways, or if there's high risk the bronchitis will worsen into pneumonia. Increase your fluid intake. A cool mist humidifier may make your lungs more comfortable. An expectorant (cough medicine that loosens phlegm) can help. Repeated episodes of bronchitis and bronchospasm may result in lung damage -- for example, chronic bronchitis, recurrent pneumonias, or emphysema. If you develop a fever, increased wheezing, chest pain, or severe shortness of breath, you should contact the doctor immediately. DECONGESTANT MEDICATION: A decongestant medicine has been prescribed. Often this medicine is combined in the same tablet with an antihistamine or expectorant. This type of medicine is helpful in treating a bad cold or sinus condition, as well as in treatment of the nasal congestion of hay fever. It is not of much benefit for lung infections. Decongestant medicines are related to stimulants. They can cause an increase in blood pressure and heart rate. Persons with heart disease and high blood pressure should not take decongestants without discussing this with the physician. If you develop palpitations, chest pain, headache, or tremors, stop the medicine and consult your physician. COUGH-SUPPRESSANT & EXPECTORANT MEDICATION: You are to use a cough medication as needed for relief of symptoms. This medicine is a combination of an expectorant (to make the mucous thinner and more easily "coughed up") and a cough suppressant (to reduce the frequency of coughing). The cough-suppressant medicine is related to narcotics. You may experience mild nausea and sleepiness. Some patients who are very sensitive to narcotics may have stomach pain from this medicine. Taking the medicine with food reduces these side effects. Do not drive or work with machinery until you know how this medicine affects you. The expectorant should have no side effects. Iodine-containing expectorants (such as organidin) should not be taken by persons with active thyroid disease unless approved by your doctor. Call the doctor if you develop shortness of breath, hives, rash, itching, lightheadedness, or severe nausea and vomiting. INHALED BRONCHODILATORS: You have received a treatment of and/or prescription for an inhaled bronchodilator -- a medication which stimulates the airways in the lung to dilate. This improves the flow of air in asthma, bronchitis, and emphysema. These medicines have some similarity to adrenaline, and can cause similar side effects: shakiness, racing heart, and a sense of nervousness. These side effects decrease with time. Contact your doctor if these side effects are severe. Do not over-use the medicine. Too-frequent use of the inhaler may make it ineffective. Call your doctor if the inhaler is not controlling your symptoms at the prescribed doses. STEROID MEDICATION: You have been given an injection of or oral medicine of the cortisone/steroid class. This medication is used to control inflammation or allergy. David t is usually only given for a short period of time, until the a cute process subsides. There are usually no side effects from short-term use of cortisone-like medications. Some persons feel an increased sense of well-being and are not sleepy at bedtime. Long-term use of cortisone medications is best avoided, unless required for a severe condition. If your condition does not remit, or relapses after the course of corticosteroid medication, you should consult your physician. USE OF ACETAMINOPHEN (Tylenol): Acetaminophen may be taken for pain relief or fever control. It's much safer than aspirin, offering a wider range of "safe" dosages. It is safe during . Some brand names are Tylenol, Panadol, Datril, Anacin 3, Tempra, and Liquiprin. Acetaminophen can be repeated every four hours. The following are maximum recommended dosages: >89 pounds or adults 650 mg to 900 mg Acetaminophen can be repeated every four hours. Maximum dose not to exceed 4000 mg a day. SMOKING: If you smoke, you should stop smoking. The tar and chemicals in cigarette smoke are harmful. Smoking has been shown to cause: emphysema chronic bronchitis lung cancer mouth and throat cancer stomach and pancreas cancer premature aging defects In addition, smoking increases ear and lung infections in children of smokers. FOLLOW-UP CARE: If you have been referred to a physician for follow-up care, call the physicians office for an appointment as you were instructed or within the next two days. If you experience worsening or a significant change in your symptoms, notify the physician immediately or return to the Emergency Department at any time for re-evaluation. Prescriptions: Benzonatate [Tessalon Perles 100 mg Capsule] 100 mg PO Q8HP PRN #21 capsule PRN Reason: Prednisone [Deltasone 10 mg Tablet] 10 mg PO ASDIR PRN #21 tablet PRN Reason: Forms: Smoking Cessation Education
[2019-02-28] MEDS ORDERED: BENZONATATE 100 MG CAPSULE PO ONE (23:41)
[2019-02-28] MEDS ORDERED: ALBUTEROL SULFATE HFA (90 MCG/PUFF) 8 GM MDI (1 MDI/ER DISP) IH PRN (23:41)
[2019-03-01 00:15] VITALS: BP 151/102
== END 2019-03-01 00:15 | disposition home or self-care (01) ==
LOC: ER 19:41
DX: J20.9 Acute bronchitis, unspecified (principal); F17.200 Nicotine dependence, unspecified, uncomplicated
CPT/HCPCS: 94640; 99283; 36415; 85025; 80053; 71046; J7512; J3490; J7620

== ENCOUNTER → 2019-04-09 | Outpatient (CLI) | payer OTHER ==
[2019-04-09 13:05] LABS: ABSOLUTE BASOPHILS # (AUTO) 0.1 10^3/uL (0.0-0.2); ABSOLUTE EOSINOPHILS # (AUTO) 0.9 10^3/uL (0.0-0.6); ABSOLUTE LYMPHOCYTES (AUTO) 2.3 10^3/uL (0.5-4.7); ABSOLUTE MONOCYTES (AUTO) 0.5 10^3/uL (0.1-1.4); ABSOLUTE NEUT (AUTO) 2.7 10^3/uL (1.7-8.2); BASOPHILS % (AUTO) 1.2 % (0-2); EOSINOPHILS % (AUTO) 13.7 % (0-6); HEMOGLOBIN 15.3 g/dL (13.5-17.0); LYMPHOCYTES % (AUTO) 35.4 % (13-45); MEAN CORPUSCULAR HEMOGLOBIN 29.8 pg (27.0-33.4); MEAN CORPUSCULAR VOLUME 88 fl (80-97); MONOCYTES % (AUTO) 7.5 % (3-13); PLATELET COUNT 248 10^3/uL (150-450); RED BLOOD COUNT 5.14 10^6/uL (4.35-5.55); RED CELL DISTRIBUTION WIDTH 13.6 % (11.5-14.0); SEGMENTED NEUTROPHILS % (AUTO) 42.2 % (42-78); TOTAL CELLS COUNTED % (AUTO) 100 %; WHITE BLOOD COUNT 6.4 10^3/uL (4.0-10.5)
[2019-04-09 13:33] LABS: ALBUMIN 4.2 g/dL (3.5-5.0); ALKALINE PHOSPHATASE 76 U/L (38-126); ANION GAP 8 (5-19); ASPARTATE AMINO TRANSFERASE 25 U/L (17-59); BILIRUBIN,DIRECT 0.2 mg/dL (0.0-0.4); BILIRUBIN,TOTAL 0.5 mg/dL (0.2-1.3); BLOOD UREA NITROGEN 12 mg/dL (7-20); CALCIUM 9.2 mg/dL (8.4-10.2); CARBON DIOXIDE 28 mmol/L (22-30); CHLORIDE 105 mmol/L (98-107); CHOLESTEROL 233.01 mg/dL (0-200); GLUCOSE 98 mg/dL (75-110); POTASSIUM 4.7 mmol/L (3.6-5.0); TOTAL PROTEIN 7.9 g/dL (6.3-8.2); TRIGLYCERIDES 318 mg/dL (<150)
[2019-04-09 13:43] LABS: DIRECT LDL 164 mg/dL (<100)
[2019-04-09 14:05] LABS: VLDL CHOLESTEROL 63.6 mg/dL (10-31)
== END ==
LOC: OD 11:45
DX: N52.9 Male erectile dysfunction, unspecified (principal)
CPT/HCPCS: 36415; 80053; 80061; 83036; 84153; 84443; 85025

== ENCOUNTER 2019-04-21 16:11 | Emergency (ER) | payer OTHER ==
--- NOTE | 2019-04-21 16:48 | ER Document Report ---
ED Medical Screen (RME) - General Chief Complaint: Shoulder Pain Stated Complaint: SHOULDER PAIN Time Seen by Provider: 04/21/19 16:40 Primary Care Provider: [facility] [Primary Care Provider] - Follow up as needed Mode of Arrival: Ambulatory Information source: Patient Notes: 63-year-old male presented to ED for complaint of bilateral pain to bilateral shoulders elbows wrist and low back. He states he has been having muscle cramping and sometimes he drops whenever he is holding due to the muscle cramping. He states this is been happening off and on for about a year but he is does not have go to primary care doctors. He has been seen in the emergency room several times this year but has not brought up these muscle cramps and muscle pain. He was admitted in June but did not bring this up with the doctors at that time at that time he was in respiratory failure. Patient is alert oriented respirations regular and unlabored speaking in full sentences. He states he does not go to doctors does not have a primary doctor and does not have any past medical history. He states he does not have any surgical history. He states he does drink a couple beers a day and smokes 2 to 3 cigarettes a day he states he might have an occasional wine. I have greeted and performed a rapid initial assessment of this patient. A comprehensive ED assessment and evaluation of the patient, analysis of test results and completion of medical decision making process will be conducted by an additional ED providers. TRAVEL OUTSIDE OF THE [place] IN LAST 30 DAYS: No - Related Data Allergies/Adverse Reactions: No Known Allergies Allergy (Verified 07/08/18 01:49) Past Medical History - Social History Frequency of alcohol use: Occasional Drug Abuse: None Renal/ Medical History: Denies: Hx Peritoneal Dialysis - Immunizations Hx Diphtheria, Pertussis, Tetanus Vaccination: Yes Physical Exam - Vital signs Vitals: Temp Pulse Resp BP Pulse Ox 97.9 F 75 20 154/93 H 97 04/21/19 16:17 04/21/19 16:17 04/21/19 16:17 04/21/19 16:17 04/21/19 16:17 Course - Vital Signs Vital signs: Temp Pulse Resp BP Pulse Ox 97.9 F 75 20 154/93 H 97 04/21/19 16:17 04/21/19 16:17 04/21/19 16:17 04/21/19 16:17 04/21/19 16:17 Doctor's Discharge - Discharge Referrals: [facility] [Primary Care Provider] - Follow up as needed
[2019-04-21 17:24] LABS: ABSOLUTE BASOPHILS # (AUTO) 0.1 10^3/uL (0.0-0.2); ABSOLUTE EOSINOPHILS # (AUTO) 0.8 10^3/uL (0.0-0.6); ABSOLUTE LYMPHOCYTES (AUTO) 3.1 10^3/uL (0.5-4.7); ABSOLUTE MONOCYTES (AUTO) 0.5 10^3/uL (0.1-1.4); ABSOLUTE NEUT (AUTO) 3.8 10^3/uL (1.7-8.2); EOSINOPHILS % (AUTO) 9.8 % (0-6); HEMATOCRIT 48.1 % (37.9-51.0); HEMOGLOBIN 16.3 g/dL (13.5-17.0); LYMPHOCYTES % (AUTO) 37.2 % (13-45); MEAN CORPUSCULAR HEMOGLOBIN 29.8 pg (27.0-33.4); MEAN CORPUSCULAR VOLUME 88 fl (80-97); MONOCYTES % (AUTO) 6.4 % (3-13); PLATELET COUNT 266 10^3/uL (150-450); RED BLOOD COUNT 5.48 10^6/uL (4.35-5.55); RED CELL DISTRIBUTION WIDTH 13.8 % (11.5-14.0); SEGMENTED NEUTROPHILS % (AUTO) 45.6 % (42-78); TOTAL CELLS COUNTED % (AUTO) 100 %; WHITE BLOOD COUNT 8.3 10^3/uL (4.0-10.5)
[2019-04-21 17:27] LABS: APPEARANCE,URINE CLEAR; BILIRUBIN,URINE NEGATIVE (NEGATIVE); COLOR,URINE YELLOW; GLUCOSE, URINE NEGATIVE (NEGATIVE); KETONES,URINE NEGATIVE (NEGATIVE); PROTEIN,URINE NEGATIVE (NEGATIVE); URINE SPECIFIC GRAVITY 1.009; UROBILINOGEN,URINE NEGATIVE mg/dL (<2.0)
[2019-04-21 17:45] LABS: ALKALINE PHOSPHATASE 87 U/L (38-126); ANION GAP 10 (5-19); ASPARTATE AMINO TRANSFERASE 24 U/L (17-59); BILIRUBIN,TOTAL 0.6 mg/dL (0.2-1.3); BLOOD UREA NITROGEN 11 mg/dL (7-20); CALCIUM 9.6 mg/dL (8.4-10.2); CARBON DIOXIDE 28 mmol/L (22-30); CHLORIDE 103 mmol/L (98-107); CREATINE KINASE 185 U/L (55-170); GLUCOSE 90 mg/dL (75-110); POTASSIUM 4.1 mmol/L (3.6-5.0); TOTAL PROTEIN 8.7 g/dL (6.3-8.2)
--- NOTE | 2019-04-21 17:55 | RADIOLOGY REPORT (SQ) ---
EXAM DESCRIPTION: L SPINE WHOLE COMPLETED DATE/TIME: 04/21/2019 5:31 pm REASON FOR STUDY: Pain to bilateral shoulders elbows wrist and low b COMPARISON: None. NUMBER OF VIEWS: Five views including obliques. TECHNIQUE: AP, lateral, oblique, and sacral radiographic images acquired of the lumbar spine. LIMITATIONS: None. FINDINGS: MINERALIZATION: Normal. SEGMENTATION: Normal. No transitional anatomy. ALIGNMENT: Normal. VERTEBRAE: Maintained height. No fracture or worrisome bone lesion. DISCS: Slight disc narrowing at L4-5 and L5-S1. Tiny marginal osteophytes at several levels. POSTERIOR ELEMENTS: Pedicles and facets are intact. No pars defect or posterior arch defects. HARDWARE: None in the spine. PARASPINAL SOFT TISSUES: Normal. PELVIS: Intact as visualized. No fractures or worrisome bone lesions. SI joints intact. OTHER: No other significant finding. IMPRESSION: Mild degenerative disc disease and spondylosis. TECHNICAL DOCUMENTATION: JOB ID: [id number] [employer]- All Rights Reserved Reading location - IP/workstation name: [email or web address]
--- NOTE | 2019-04-21 17:56 | RADIOLOGY REPORT (SQ) ---
EXAM DESCRIPTION: ELBOW BILATERAL 2 VIEWS MIN COMPLETED DATE/TIME: 04/21/2019 5:28 pm REASON FOR STUDY: Pain to bilateral shoulders elbows wrist and low b COMPARISON: None. NUMBER OF VIEWS: Two views. TECHNIQUE: AP and lateral radiographic images acquired of the right and left elbow. LIMITATIONS: None. FINDINGS: MINERALIZATION: Normal. BONES: No acute fracture or dislocation. No worrisome bone lesions. JOINT: No effusion. SOFT TISSUES: No soft tissue swelling. No foreign body. OTHER: No other significant finding. IMPRESSION: NEGATIVE STUDY OF THE RIGHT AND LEFT ELBOW. NO EXPLANATION FOR THE PATIENT'S PAIN. NO RADIOGRAPHIC EVIDENCE OF ACUTE INJURY. TECHNICAL DOCUMENTATION: JOB ID: [id number] [employer]- All Rights Reserved Reading location - IP/workstation name: [email or web address]
--- NOTE | 2019-04-21 17:58 | RADIOLOGY REPORT (SQ) ---
EXAM DESCRIPTION: SHOULDER BILAT 2 OR MORE VIEWS COMPLETED DATE/TIME: 04/21/2019 5:28 pm REASON FOR STUDY: Pain to bilateral shoulders elbows wrist and low b COMPARISON: None. NUMBER OF VIEWS: Two views. TECHNIQUE: Frontal and lateral images acquired of the right and left shoulder. LIMITATIONS: None. FINDINGS: MINERALIZATION: Normal. BONES: No acute fracture. No worrisome bone lesions. JOINTS: No dislocation. VISUALIZED LUNGS AND RIBS: No pneumothorax. No rib fracture. SOFT TISSUES: No radiopaque foreign body. OTHER: No other significant finding. IMPRESSION: NEGATIVE STUDY OF THE RIGHT AND LEFT SHOULDERS. NO EXPLANATION FOR THE PATIENT'S PAIN. NO RADIOGRAPHIC EVIDENCE OF ACUTE INJURY. TECHNICAL DOCUMENTATION: JOB ID: [id number] [employer]- All Rights Reserved Reading location - IP/workstation name: [email or web address]
--- NOTE | 2019-04-21 17:59 | RADIOLOGY REPORT (SQ) ---
EXAM DESCRIPTION: WRIST BILATERAL 3 VIEWS COMPLETED DATE/TIME: 04/21/2019 5:28 pm REASON FOR STUDY: Pain to bilateral shoulders elbows wrist and low b COMPARISON: None. NUMBER OF VIEWS: Three views. TECHNIQUE: AP, lateral, and oblique radiographic images acquired of the right and left wrist. LIMITATIONS: None. FINDINGS: MINERALIZATION: Normal. BONES: No acute fracture or dislocation. No worrisome bone lesions. Normal alignment. SOFT TISSUES: No soft tissue swelling. No foreign body. OTHER: No other significant finding. IMPRESSION: NEGATIVE STUDY OF THE RIGHT AND LEFT WRISTS. NO EXPLANATION FOR PATIENT'S PAIN. NO RAD IOGRAPHIC EVIDENCE OF ACUTE INJURY. TECHNICAL DOCUMENTATION: JOB ID: [id number] [employer]- All Rights Reserved Reading location - IP/workstation name: [email or web address]
[2019-04-21] MEDS ORDERED: KETOROLAC TROMETHAMINE 60 MG/2 ML SDV IM ONE (18:29)
--- NOTE | 2019-04-21 19:34 | EKG REPORT ---
SEVERITY:- OTHERWISE NORMAL ECG - SINUS RHYTHM BORDERLINE LEFT AXIS DEVIATION : Confirmed by: Eugene Syed MD 21-Apr-2019 19:33:48
--- NOTE | 2019-04-21 19:36 | RADIOLOGY REPORT (SQ) ---
EXAM DESCRIPTION: CERV SP 3 VIEW OR LESS COMPLETED DATE/TIME: 04/21/2019 7:03 pm REASON FOR STUDY: neck pain COMPARISON: None. NUMBER OF VIEWS: Three views. TECHNIQUE: AP, lateral and odontoid radiographic images acquired of the cervical spine. LIMITATIONS: None. FINDINGS: MINERALIZATION: Normal. ALIGNMENT: Anatomic. VERTEBRAE: Vertebral bodies of normal height. DISCS: Disc spaces are well maintained. There are prominent anterior osteophyte from C4 to C7, howev er. HARDWARE: None in the spine. SOFT TISSUES: No masses or calcifications. Lung apices clear. OTHER: No other significant finding. IMPRESSION: Spondylosis. TECHNICAL DOCUMENTATION: JOB ID: [id number] [employer]- All Rights Reserved Reading location - IP/workstation name: [email or web address]
--- NOTE | 2019-04-21 19:41 | ER Document Report ---
ED Extremity Problem, Upper - General Chief Complaint: Shoulder Pain Stated Complaint: SHOULDER PAIN Time Seen by Provider: 04/21/19 16:40 Primary Care Provider: [facility] [NO LOCAL MD] - Follow up as needed Mode of Arrival: Ambulatory Information source: Patient TRAVEL OUTSIDE OF THE [place] IN LAST 30 DAYS: No - HPI Notes: Patient presents complaining of bilateral upper extremity pain. He states is worse on the right. He states he has been having it intermittently for proxy 1 year. He does not know of anything that makes it start or stop. It does appear to get worse at times with movement and better with rest however. He states he became concerned this morning because he felt that his wrist was weak and he dropped his coffee cup. He also has some pain in the bilateral upper shoulders and neck. As well as in the lower back. He denies any types of injury or trauma. He states he has no family physician. No chest pain or shortness of breath. No nausea vomiting or diarrhea. No rashes. He states he has no known medical problems. The pain does radiate down both arms. - Related Data Allergies/Adverse Reactions: No Known Allergies Allergy (Verified 07/08/18 01:49) Past Medical History - General Information source: Patient - Social History Smoking Status: Current Every Day Smoker Frequency of alcohol use: Occasional Drug Abuse: None Family History: DM, Hypertension Patient has suicidal ideation: No Patient has homicidal ideation: No Pulmonary Medical History: Reports: Hx Bronchitis Renal/ Medical History: Denies: Hx Peritoneal Dialysis - Immunizations Hx Diphtheria, Pertussis, Tetanus Vaccination: Yes Review of Systems - Review of Systems Constitutional: denies: Chills, Fever Cardiovascular: denies: Chest pain, Palpitations Respiratory: denies: Cough, Short of breath -: Yes All other systems reviewed and negative Physical Exam - Vital signs Vitals: Temp Pulse Resp BP Pulse Ox 97.9 F 75 20 154/93 H 97 04/21/19 16:17 04/21/19 16:17 04/21/19 16:17 04/21/19 16:17 04/21/19 16:17 Interpretation: Normal - General General appearance: Appears well, Alert - HEENT Head: Normocephalic, Atraumatic Eyes: Normal Pupils: PERRL Neck: Other - Entire C-spine was palpated. There is no tenderness to palpation of the C-spine there is no step-offs or deformities. - Respiratory Respiratory status: No respiratory distress Chest status: Nontender Breath sounds: Normal Chest palpation: Normal - Cardiovascular Rhythm: Regular Heart sounds: Normal auscultation Murmur: No - Abdominal Inspection: Normal Distension: No distension Bowel sounds: Normal Tenderness: Nontender Organomegaly: No organomegaly - Back Back: Normal, Nontender - Extremities General upper extremity: Normal inspection, Nontender, Normal color, Normal ROM, Normal temperature General lower extremity: Normal inspection, Nontender, Normal color, Normal ROM, Normal temperature, Normal weight bearing. No: Tyrel's sign - Neurological Neuro grossly intact: Yes Cognition: Normal Orientation: AAOx4 Ashley Coma Scale Eye Opening: Spontaneous [place] Coma Scale Verbal: Oriented Ashley Coma Scale Motor: Obeys Commands Ashley Coma Scale Total: 15 Speech: Normal Motor strength normal: LUE, RUE, LLE, RLE Sensory: Normal - Psychological Associated symptoms: Normal affect, Normal mood - Skin Skin Temperature: Warm Skin Moisture: Dry Skin Color: Normal Course - Re-evaluation Re-evalutation: 04/21/19 19:38 Patient presents with radicular-like symptoms. There is no evidence of cardiac involvement has patient's EKG is unremarkable and pain is been going on for 1 year. No evidence of any type of bony abnormalities. Patient's laboratories are also unremarkable. He will be discharged with pain medication instructions on radiculopathy and encouraged to follow-up with a family physician. - Vital Signs Vital signs: Temp Pulse Resp BP Pulse Ox 97.9 F 75 20 154/93 H 97 04/21/19 16:17 04/21/19 16:17 04/21/19 16:17 04/21/19 16:17 04/21/19 16:17 - Laboratory Result Diagrams: 04/21/19 17:08 04/21/19 17:08 Laboratory results interpreted by me: 04/21/19 04/21/19 17:08 17:08 Eos % (Auto) 9.8 H Absolute Eos (auto) 0.8 H Creatine Kinase 185 H Total Protein 8.7 H - Diagnostic Test Radiology reviewed: Image reviewed, Reports reviewed - EKG Interpretation by Me EKG shows normal: Sinus rhythm Rate: Normal - 59 Rhythm: NSR [place]/QRS: No: Right axis deviation, Left axis deviation Discharge - Discharge Clinical Impression: Radicular pain, Radicular pain of left upper extremity, Radicular pain of right upper extremity Condition: Stable Disposition: HOME, SELF-CARE Instructions: Radiculopathy ([facility]) Additional Instructions: Please follow-up with a family physician as soon as possible. Prescriptions: Hydrocodone/Acetaminophen [Henning 5-325 mg Tablet] 1 tab PO Q6 3 Days #12 tablet Forms: Return to Work [facility]: [facility] [NO LOCAL MD] - Follow up in 3-5 days
[2019-04-21 20:13] VITALS: BP 146/90
== END 2019-04-21 20:57 | disposition home or self-care (01) ==
LOC: ER 16:11
DX: M54.10 Radiculopathy, site unspecified (principal); M79.601 Pain in right arm; M79.602 Pain in left arm; M25.511 Pain in right shoulder; M25.512 Pain in left shoulder; M62.81 Muscle weakness (generalized); M54.2 Cervicalgia; M54.5 Low back pain; F17.200 Nicotine dependence, unspecified, uncomplicated
CPT/HCPCS: 93005; 99284; 96372; 36415; 82550; 83690; 85025; 80053; 81001; 72040; 72110; 73030; 73070; 73110; 93010; J1885

== ENCOUNTER → 2019-05-11 | Outpatient (CLI) | payer OTHER ==
--- NOTE | 2019-05-11 16:40 | RADIOLOGY REPORT (SQ) ---
EXAM DESCRIPTION: MRI HEAD COMBO COMPLETED DATE/TIME: 05/11/2019 4:26 pm REASON FOR STUDY: UNSPECIFIED DISTURBANCES OF SMELL AND TASTE (R43.9) M50.30 OTHER CERVICAL DISC DE GENERATION, UNSP CERVICAL REGIO M25.511 PAIN IN RIGHT SHOULDER M25.512 PAIN IN LEFT SHOULDER COMPARISON: None. TECHNIQUE: Multiplanar imaging includes noncontrasted T1, T2, FLAIR, diffusion with ADC map and post gadolinium contrast T1 sequences. Images stored on PACS. CONTRAST TYPE AND DOSE: 15 mL Dotarem. RENAL FUNCTION: Not indicated. ACR Type II contrast agent associated with few, if any, unconfounded cases of NSF LIMITATIONS: None. FINDINGS: ANATOMY: No anomalies. Normal vascular flow voids. Pituitary fossa normal. CSF SPACES: Normal in size and contour. No hemorrhage. CEREBRUM: Sulci and gyri normal in size and contour. Normal white matter signal on FLAIR imaging. No evidence of hemorrhage, mass, or extraaxial fluid collection. No abnormal enhancement post contrast. POSTERIOR FOSSA: No signal alteration. No hemorrhage. No edema, masses, or mass effect. Internal abbie tory canals, cerebellopontine angles, mastoids normal. No enhancing lesions. No abnormal enhancement post contrast. DIFFUSION IMAGING: Negative for acute or subacute infarction. ORBITS: No masses. Globes normal. PARANASAL SINUSES: No fluid levels. Mucosa normal. OTHER: No other significant finding. IMPRESSION: NORMAL MRI OF THE BRAIN WITHOUT AND WITH INTRAVENOUS GADOLINIUM CONTRAST. EVIDENCE OF ACUTE STROKE: NO. TECHNICAL DOCUMENTATION: JOB ID: [id number] [employer]- All Rights Reserved Reading location - IP/workstation name: [email or web address]
== END ==
LOC: RAD 15:26
PROVIDERS: ATTEND Internal Medicine
DX: R43.9 Unspecified disturbances of smell and taste (principal); M25.511 Pain in right shoulder; M25.512 Pain in left shoulder; M50.30 Other cervical disc degeneration, unspecified cervical region
CPT/HCPCS: 70553; A9576